=== PATIENT | female | born 2000 | race Caucasian/White ===

== ENCOUNTER 2021-08-01 20:02 | Emergency (ER) | payer SELFPAY ==
[~2021-08-01] VITALS: Ht 162.6 cm; Wt 61.4 kg
[2021-08-01 20:10] VITALS: TEMP 97.2
[2021-08-01 22:32] VITALS: BP 126/78; PULSE 68
== END 2021-08-01 22:32 | disposition home or self-care (01) ==
LOC: COL.ER 20:02
DX: S61.152A Open bite of left thumb with damage to nail, initial encounter (principal); W54.0XXA Bitten by dog, initial encounter; Y92.59 Other trade areas as the place of occurrence of the external cause; Y99.0 Civilian activity done for income or pay